=== PATIENT | male | born 1985 | race Caucasian/White ===

== ENCOUNTER 2019-06-23 15:07 | Emergency (ER) | payer OTHER ==
[~2019-06-23] VITALS: Ht 188 cm; Wt 83.9 kg
[~2019-06-23 15:07] MED LIST: AMPDEX10CR PO; PRED20 PO; Tysabri300 MG/15 IV
== END 2019-06-23 16:47 | disposition home or self-care (01) ==
LOC: ER 15:07
DX: R07.89 Other chest pain (principal); F90.9 Attention-deficit hyperactivity disorder, unspecified type; G35 Multiple sclerosis; Z88.1 Allergy status to other antibiotic agents
CPT/HCPCS: 71046; 93005; 93010; 99283-25

== ENCOUNTER 2020-11-27 08:03 | Day surgery (SDC) | payer OTHER ==
[~2020-11-27] VITALS: Ht 190.5 cm; Wt 88.3 kg
[~2020-11-27 08:03] MED LIST changes: +COPAXONE40 MG/1 ML SC; +VITAMIN D325 MC3 PO
--- NOTE | 2020-11-27 09:16 | NUR ---
11/27/20 0916 Anastasia Strong PT UPDATED ON HIS START TIME BEING DELAYED DUE TO PREVIOUS CASE RUNNING LONGER THAN EXPECTED. BED IN LOW, LOCKED POSITION, CALL LIGHT IN REACH.
== END 2020-11-27 10:50 | disposition home or self-care (01) ==
LOC: ORSCSDS 08:03
PROVIDERS: Internal Medicine Gastroenterology
PROC: 0DBH8ZX Excision of Cecum, Via Natural or Artificial Opening Endoscopic, Diagnostic (ICD-10-PCS; principal; 2020-11-27 09:15)
PROC: 0DBM8ZX Excision of Descending Colon, Via Natural or Artificial Opening Endoscopic, Diagnostic (ICD-10-PCS; principal; 2020-11-27 09:15)
PROC: 0DBL8ZX Excision of Transverse Colon, Via Natural or Artificial Opening Endoscopic, Diagnostic (ICD-10-PCS; principal; 2020-11-27 09:15)
DX: Z12.11 Encounter for screening for malignant neoplasm of colon (principal); Z86.010 Personal history of colon polyps; Z80.0 Family history of malignant neoplasm of digestive organs; D12.0 Benign neoplasm of cecum; D12.2 Benign neoplasm of ascending colon; K64.1 Second degree hemorrhoids; G35 Multiple sclerosis; Z79.899 Other long term (current) drug therapy
CPT/HCPCS: 88305; J2250; J2704; J7120